=== PATIENT | female | born 1950 | race Two or more races ===

== ENCOUNTER 2019-03-17 12:45 | Inpatient (IN) | payer MEDICARE, MEDICAID ==
[~2019-03-17] VITALS: Ht 167.6 cm; Wt 74.8 kg
[~2019-03-17 12:45] MED LIST: ACET-1156 PO; ATO40T PO; B-COCAP4 OR; B-COTAB10 PO; BENA10TA9 PO; BIS10RS PR; CARV12.544 PO; CINA30TA2 PO; DOCU250C3 PO; EPOE10003 SC; ERGO2000 PO; FLUT1SPR5 IN; INSREG3 SUBCUT; LACT10SO3 PO; LORA-622 PO; LORA-655 PO; METH500T6 PO; MUPI2CRE TOP; NIFE60TA59 PO; POLY33504 PO; SEVE800T10 PO; SIME80CH6 PO; SODIENE35 RE; SODIPOW6 OR; TRAM50TA2 PO
[2019-03-17] MEDS ORDERED: HYDROmorphone HCL 2 MG/ML VL IV ONE (13:00)
[2019-03-17] MEDS ORDERED: ONDANSETRON HCL 4 MG/2 ML VIAL IV ONE ×2 (13:00→17:30)
[2019-03-17 13:51] LABS: Basophils # (auto) 0 uL; Basophils % (auto) 0.8 % (0.0-2.0); Eosinophils # (auto) 0.6 uL; Hemoglobin 8.7 g/dL (12.2-16.2); Lymphocytes # (auto) 0.8 uL; Lymphocytes % (auto) 16.1 % (10.0-50.0); Mean Corpuscular Hemoglobin 33.2 pg (28.0-32.0); Mean Corpuscular Hgb Conc. 33.6 g/dL (32.0-36.0); Monocytes # (auto) 0.4 uL; Monocytes % (auto) 7.9 % (0.0-12.0); Neutrophils # (auto) 3.1 uL; Neutrophils % (auto) 63.2 % (37.0-80.0); Nucleated Red Blood Cells % 0.1 %; Platelet Count (auto) 234 10^3/uL (140-450); Red Blood Cells 2.62 10^6/uL (4.0-5.20); White Blood Cell 4.9 10^3/uL (4.4-10.8)
[2019-03-17 14:13] LABS: BUN/Creatinine Ratio 6.4; Calcium 8.1 mg/dL (8.5-10.1); Potassium 4.8 mmol/L (3.5-5.1)
[2019-03-17 14:27] LABS: Red Cell Distribution Width 22.1 % (11.8-14.3)
[2019-03-17] MEDS ORDERED: MORPHINE SULFATE 4 MG/ML SYR/VIAL IV ONE (17:30)
[2019-03-17] MEDS ORDERED: MORPHINE SULF INJ 2 MG/ML SYRINGE 1ML IV PRN (19:15)
[2019-03-17] MEDS ORDERED: NITROGLYCERIN 0.4 MG SL TAB SL PRN (19:15)
--- NOTE | 2019-03-17 21:35 | NUR ---
Telemetry admit from [facility] admitted to Telemetry unit after SBAR received. Patient oriented to Joseline og RN, unit, room, bed, and unit policies regarding patient care and visiting hours. Patient now on continuous telemetry monitoring, tele box # 31 and telemetry reading on arrival to unit is SR 61. Patient placed on bedside oxygen, weighed by bed scale and encouraged to call if they need something. All questions and concerns addressed, patient verbalized understanding. Note: Came per stretcher awake alert oriented x 4,not in resp.distress, placed in the bed comfortably,vital signs checked.
[2019-03-17 22:27] VITALS: BP 166/74
--- NOTE | 2019-03-17 23:00 | NUR ---
Called Dr. Elizabeth Abbottfor benadryl 25mg.p.o for itching,and lorazepam 1 mg.p.o.for anxiety, with ordered both as needed.
[2019-03-17] MEDS: LORazepam 0.5 MG TAB PO PRN (23:38)
[2019-03-18] VITALS (8 sets, daily range): BP systolic 142–187; BP diastolic 51–94
[2019-03-18] MEDS: diphenhdrAMINE HCL 25 MG CAP PO PRN ×2 (03:38→21:10)
[2019-03-18] MEDS: MORPHINE SULF INJ 2 MG/ML SYRINGE 1ML IV PRN (03:39)
[2019-03-18] MEDS ORDERED: HYDROmorphone HCL 2 MG/ML VL IM ONE (04:30)
--- NOTE | 2019-03-18 06:00 | NUR ---
Dialysis nurse called and said she will come at 0800. Signed: 03/18/19 at 0654 by Joseline Golden RN
[2019-03-18 06:17] LABS: Basophils # (auto) 0.1 uL; Basophils % (auto) 1.3 % (0.0-2.0); Eosinophils # (auto) 0.7 uL; Eosinophils % (auto) 12.9 % (0.0-7.0); Hematocrit 25.6 % (36.0-46.0); Hemoglobin 8.5 g/dL (12.2-16.2); Lymphocytes # (auto) 0.7 uL; Lymphocytes % (auto) 13.6 % (10.0-50.0); Mean Corpuscular Hemoglobin 32.7 pg (28.0-32.0); Mean Corpuscular Hgb Conc. 33.3 g/dL (32.0-36.0); Mean Corpuscular Volume 98.3 fL (80.0-100.0); Monocytes # (auto) 0.4 uL; Monocytes % (auto) 7.8 % (0.0-12.0); Neutrophils # (auto) 3.4 uL; Neutrophils % (auto) 64.4 % (37.0-80.0); Nucleated Red Blood Cells % 0.2 %; Platelet Count (auto) 230 10^3/uL (140-450); White Blood Cell 5.2 10^3/uL (4.4-10.8)
[2019-03-18 06:18] LABS: Red Cell Distribution Width 20.9 % (11.8-14.3)
[2019-03-18 06:40] LABS: Calcium 8.1 mg/dL (8.5-10.1); Chloride 100 mmol/L (98-107); Potassium 4.8 mmol/L (3.5-5.1); Sodium 135 mmol/L (136-145)
[2019-03-18 06:45] LABS: Alanine Aminotransferase < 6 U/L (13-56); Albumin 2.1 g/dL (3.4-5.0); Alkaline Phosphatase 194 U/L (45-117); Anion Gap 9 (5-15); Aspartate Aminotransferase 20 U/L (15-37); BUN/Creatinine Ratio 6.9; Bilirubin, Total 0.8 mg/dL (0.2-1.0); Blood Urea Nitrogen 38 mg/dL (7-18); Carbon Dioxide 26 mmol/L (21-32); GFR African American 10 mL/min; GFR Non-African American 8 mL/min; Glucose 88 mg/dL (74-106); Total Protein 5.5 g/dL (6.4-8.2)
[2019-03-18] MEDS ORDERED: SODIUM CHL 0.9% 1000 ML BAG XX ONE (07:00)
--- NOTE | 2019-03-18 07:10 | NUR ---
OPENING SHIFT NOTE ASSUMED CARE OF PATIENT FROM MANUFACTURING LAB TECHNICIAN KYLEE MCGARRY. PATIENT IS AWAKE AND ALERT X4. PATIENT HAS NO S/S OF DISTRESS/SOB OR PAIN. INSTRUCTED PATIENT ON POC, PATIENT VERBALIZED UNDERSTANDING. BED IS IN LOWEST POSITION WITH SIDE RAILS X2, BED WHEELS LOCKED, AND CALL LIGHT IS WITHIN REACH. WILL CONTINUE TO MONITOR.
--- NOTE | 2019-03-18 07:47 | NUR ---
Report given to Douglas Tran to assume care, patient is resting no distress, picture taken of the back and of the left upper chest.
--- NOTE | 2019-03-18 08:00 | NUR ---
PER PATIENT SHE TAKES ATIVAN PRIOR TO DIALYSIS. WILL ADMINISTER ACCORDING MAR.
--- NOTE | 2019-03-18 08:30 | NUR ---
PHLEBOTOMIST ASSOCIATE AT BEDSIDE.
[2019-03-18] MEDS: LORazepam 0.5 MG TAB PO PRN ×3 (08:36→21:10)
--- NOTE | 2019-03-18 11:04 | NUR ---
PAGED MD NAYAK FOR PAIN MEDICATION AND ACCUCHECK. AWAITING CALL BACK.
--- NOTE | 2019-03-18 13:05 | NUR ---
DIALYSIS DONE. RECEIVED REPORT FROM DEPENDENCY PROGRAM DIRECTOR. PATIENT'S RIGHT ARM IS EDEMATOUS 4+. PAGED DR. TAM AND DR. NAYAK. AWAITING CALL BACK
--- NOTE | 2019-03-18 13:06 | NUR ---
MD NAYAK CALLED BACK AND WANTS TO CONTINUE HOME MEDICATION TRAMADOL AND ACCUCHECKS. NO NEW ORDERS GIVEN FOR RIGHT ARM.WILL CONTINUE TO MONITOR.
[2019-03-18] MEDS ORDERED: DEXTROSE (50%) 50ML SYRG IV PRN (13:15)
[2019-03-18] MEDS: traMADol HCL 50 MG TAB PO PRN (13:31)
--- NOTE | 2019-03-18 14:12 | NUR ---
WOUND CARE NOTE: Wound care in to see patient per wound care request regarding "scab in the left upper chest" that are noted present on admission. Bedside nurse took photograph of patient's wounds upon admission for reference. Patient is 68 years old female with admitting diagnosis of Pulmocare Edema, Fluid Overload. She has history of ESRD. Patient is resting in bed in Rm. 217A. She's awake, alert and oriented. Patient is in no stated pain at this time, however mild pain noted upon turning. She's able to move, turn and reposition self. Her Salty score is 18. Patient las long linear, stapled incision to her posterior back. Wound is clean and dry, well approximated with intact tabitha, no drainage/odor noted, bedside nurse cleansed and covered with Primapore dressing. Patient has history of back surgery three weeks ago at [facility]. She has 1.2x1cm open full thickness wound with no measurable depth to her Lt upper chest which she states "previous cath site that got infected, and removed" Wound is red with pink periwound, scant sanguinous drainage noted, no odor noted. Cleansed patient's Lt. upper chest wound with NS, patted dry with sterile gauze, applied Thera honey gel and covered with Opti foam gentle dressing. No pressure injury noted, however patient's sacrum has darker brown shades sacral skin but blanchable. Patient tolerated well and repositioned for comfort. Patient's education given regarding skin/wound care, encourage to frequently shifts weighs by turning side to side. Patient verbalized understanding. Bed in low position, call roach on hand, all safety precautions in placed. No further wound care monitoring needed at this time. RECOMMENDATION: BID/PRN cleaning and application of Barrier cream to sacrum as preventative,EOD/PRN dressing change to L upper chest wound, dressing change to back wound per MD order, dietary consult, redistribute pressure points with pillows, elevate heels on pillows. Addendum: 03/18/19 at 1824 by Alysha Esteves RN Amended: Links added.
[2019-03-18] MEDS: hydrALAZINE HCL 20 MG/ML VL IV PRN (15:55)
--- NOTE | 2019-03-18 16:30 | NUR ---
DR. NAYAK AT BEDSIDE. UPDATED MD ON PATIENT'S STATUS INCLUDING BLOOD PRESSURE, MD IS AWARE. MD ORDERED PT EVAL. WILL FOLLOW THROUGH WITH ORDER.
--- NOTE | 2019-03-18 16:31 | NUR ---
assessment Patient is a 68 year old female who is alert and oriented. Prior to admission patient lived home with her daughter Neo and functioned with her assistance. Patient has a fww for home use. [facility]. Patient informed me she wants to go to [facility] for PT and dialysis on discharge. Patients post discharge needs to be determined prior to discharge. Addendum: 03/18/19 at 1634 by Joaquina MATA Amended: Links added.
[2019-03-18] MEDS: ACCU-CHEK COMFORT CURVE STRIP VI SCH ×2 (17:00→22:00)
[2019-03-18] MEDS: InsuLIN REG 1unit/0.01ml Soln (100units/ml) SC SCH ×2 (17:00→22:00)
--- NOTE | 2019-03-18 19:23 | NUR ---
CLOSING SHIFT NOTE ENDORSED CARE TO HEATING FIXTURE TENDER RN FROY. PATIENT HAS NO S/S OF DISTRESS/SOB OR PAIN AT THIS TIME.
[2019-03-19] VITALS (9 sets, daily range): BP systolic 164–214; BP diastolic 64–91
[2019-03-19] MEDS: traMADol HCL 50 MG TAB PO PRN ×2 (01:39→13:40)
--- NOTE | 2019-03-19 05:48 | NUR ---
BLOOD SUGAR OF 73 WITH PATIENT PROMPTED TO DRINK APPLE JUICE MIXED WITH SUGAR. RECHECK THIRTY MINUTES LATER REVEALED A BLOOD SUGAR OF 97.
[2019-03-19] MEDS: LORazepam 0.5 MG TAB PO PRN ×2 (05:50→20:04)
[2019-03-19] MEDS: ACCU-CHEK COMFORT CURVE STRIP VI SCH ×4 (05:51→22:26)
[2019-03-19] MEDS: InsuLIN REG 1unit/0.01ml Soln (100units/ml) SC SCH ×4 (05:51→22:00)
--- NOTE | 2019-03-19 07:15 | NUR ---
OPENING SHIFT NOTE ASSUMED CARE OF PATIENT FROM RN RENAL RN FROY. PATIENT IS AWAKE AND ALERT X4. PATIENT HAS NO S/S OF DISTRESS/SOB. PATIENT STATES SHE IS HAVING PAIN 7/10 AND IS REQUESTING DILAUDID AND BENADRYL TO BE GIVEN TOGETHER. INFORMED PATIENT SHE ONLY HAS TRAMADOL ORDERED AND IT IS NOT DUE YET, PATIENT VERBALIZED UNDERSTANDING. ASSISTED PATIENT TO CHAIR WITH MINIMAL ASSISTANCE. INSTRUCTED PATIENT ON POC, PATIENT VERBALIZED UNDERSTANDING. PATIENT IS SITTING UP IN CHAIR EATING BREAKFAST, SITTER AT BEDSIDE AND CALL LIGHT IS WITHIN REACH. WILL CONTINUE TO MONITOR.
--- NOTE | 2019-03-19 08:16 | NUR ---
PAGED MD NAYAK REGARDING YESTERDAYS PROGRESS NOTE. CONFIRMING MD WANTS TO CONTINUE HOME MEDICATIONS AND CARDIO AND ORTHO CONSULT. NO NEW ORDERS WERE PUT IN COMPUTER. AWAITING CALL BACK.
--- NOTE | 2019-03-19 08:45 | NUR ---
PT AMBULATING PATIENT WITH WALKER. PATIENT HAS NO S/S OF DISTRESS/SOB. WILL CONTINUE TO MONITOR.
--- NOTE | 2019-03-19 09:00 | NUR ---
PATIENT'S BLOOD PRESSURE IS 214/71 mmHg. WILL ADMINISTER BLOOD PRESSURE MEDICATION PER NOV.
[2019-03-19] MEDS: hydrALAZINE HCL 20 MG/ML VL IV PRN ×3 (09:05→20:41)
--- NOTE | 2019-03-19 10:00 | NUR ---
REASSESSED BLOOD PRESSURE 164/73 mmHg. HEART RATE IS 75 BPM.
--- NOTE | 2019-03-19 12:34 | NUR ---
Nutrition consult/assessment Notes please see attached link for complete assessment Est. Needs BW [id number] kcal (27-30 kcal/kgBW), 85-99 gms pro (1.2-1.4 gms/kgBW r/t HD severe hypoalb wounds). Will continue to monitor pertinent labs and reassess nutrient need prn Addendum: 03/19/19 at [address] Amended: Links added.
--- NOTE | 2019-03-19 13:34 | NUR ---
PAGED MD NAYAK. AWAITING CALL BACK
--- NOTE | 2019-03-19 16:20 | NUR ---
PAGED MD NAYAK. AWAITING CALL BACK
--- NOTE | 2019-03-19 19:24 | NUR ---
Opening Shift Note Assumed care of patient, awake and alert x 4. No S/S of distress/SOB. Bed is in lowest position and locked. Call light within reach. Board updated. Tele box number matches monitor and leads are in correct placement. Instructed on POC and to call for assist PRN, will continue to monitor for changes Q1hr and PRN.
[2019-03-19] MEDS: diphenhdrAMINE HCL 25 MG CAP PO PRN (20:04)
--- NOTE | 2019-03-19 20:52 | NUR ---
Paged MD Johnson to notify him that patient's blood pressure has been elevated for the past 36 hours yet patient is not recieving their home blood pressure medications. Awaiting call back.
[2019-03-19] MEDS: Pro-Stat SF 30ml Vanilla PO SCH (22:00)
--- NOTE | 2019-03-19 22:18 | NUR ---
Dr. Johnson in to see patient. Orders received. Per MD Johnson: 1) CBC, BMP test for next three days, 2) Cardiology consult for MD Larkin, 3) Ortho consult for vertebral surgery at [facility], chronic back and hip pain 4) Resume daily home medications with exception of Sensipar because of current calcium levels, These medications are Atorvastatin 40 mg PO HS, Benazepril 10 mg PO Daily, Carvedilol 12.5 mg PO q 12 hrs, Nifedipine 60 mg PO Daily, and Docusate 250 mg PO BID. Addendum: 03/19/19 at 2303 by JERARDO SHAW RN Orders repeated, verified and placed.
[2019-03-19] MEDS: ASCORBIC ACID 500 MG TAB PO SCH (22:25)
[2019-03-19] MEDS: CARVEDILOL 12.5 MG TAB PO SCH (23:38)
[2019-03-19] MEDS: ATORVASTATIN 20 MG TAB PO SCH (23:39)
[2019-03-20] MEDS: traMADol HCL 50 MG TAB PO PRN ×2 (01:38→14:11)
[2019-03-20] MEDS: diphenhdrAMINE HCL 25 MG CAP PO PRN ×2 (02:01→17:02)
[2019-03-20 04:58] VITALS: BP 129/52
[2019-03-20] MEDS: LORazepam 0.5 MG TAB PO PRN ×2 (05:11→18:28)
[2019-03-20] MEDS: InsuLIN REG 1unit/0.01ml Soln (100units/ml) SC SCH ×4 (06:17→22:00)
[2019-03-20] MEDS: ACCU-CHEK COMFORT CURVE STRIP VI SCH ×4 (06:17→22:44)
--- NOTE | 2019-03-20 07:10 | NUR ---
OPENING SHIFT NOTE ASSUMED CARE OF PATIENT FROM GUIDE PLANT RN JERARDO. PATIENT HAS NO S/S OF DISTRESS/SOB OR PAIN. INSTRUCTED PATIENT ON POC, PATIENT VERBALIZED UNDERSTANDING. BED IS IN LOWEST POSITION WITH SIDE RAILS RAISED X2, BED WHEELS LOCKED, AND CALL LIGHT IS WITHIN REACH. WILL CONTINUE TO MONITOR.
[2019-03-20 08:00] VITALS: BP 133/47
--- NOTE | 2019-03-20 08:38 | NUR ---
PAGED MD TAM FOR DIALYSIS ORDERS. AWAITING CALL BACK
[2019-03-20 09:00] VITALS: BP 133/47
--- NOTE | 2019-03-20 09:50 | NUR ---
DAUGHTER AT BEDSIDE UPDATED DAUGHTER ON PATIENT'S STATUS, DAUGHTER IS AWARE. PER DAUGHTER PATIENT IS ADDICTED TO PAIN MEDICATIONS AND REFUSES TO GET OUT OF BED FOR DIALYSIS. PATIENT'S ROOM IS ON THE SECOND STORY. INFORMED DAUGHTER THAT PATIENT STATED, " IT IS HARD FOR ME TO WALK UP AND DOWN THE STAIRS AFTER I HAD BACK SURGERY AND MY GRANDSON HAS A BEDROOM ON THE FIRST FLOOR AND WONT SWITCH ME ROOMS." DAUGHTER STATED, "MY MOM WANTS TO SLEEP IN THE LIVING ROOM AND SHE CAN'T SLEEP THERE." DAUGHTER WANTS PATIENT TO BE SENT TO A REHAB FACILITY. DAUGHTER ALSO BROUGHT IN PATIENT'S HOME MEDICATION FOR PERCOCET, INFORMED DAUGHTER I WILL INFORM MD NAYAK OF PRESCRIPTION AND SHE WILL NEED TO TAKE THE BOTTLE OF MEDICATION HOME. DAUGHTER VERBALIZED UNDERSTANDING AND WILL TAKE IT HOME.
[2019-03-20] MEDS: Pro-Stat SF 30ml Vanilla PO SCH ×2 (10:00→21:26)
[2019-03-20] MEDS: NIFEdipine ER 30 MG TAB PO SCH (10:00)
[2019-03-20] MEDS: ASCORBIC ACID 500 MG TAB PO SCH ×2 (10:01→22:44)
[2019-03-20] MEDS: BENAZEPRIL HCL 10 MG TAB PO SCH (10:01)
[2019-03-20] MEDS: B-COMPLEX W/ C & FOLIC ACID(NEPHROVITE TAB) PO SCH (10:01)
[2019-03-20] MEDS: CARVEDILOL 12.5 MG TAB PO SCH ×2 (10:01→22:43)
--- NOTE | 2019-03-20 10:20 | NUR ---
PHYSICAL THERAPY AT BEDSIDE. PATIENT IS OUT OF BED AND IS AMBULATING WITH WALKER. PT PLACED BACK BRACE ON PATIENT. WILL CONTINUE TO MONITOR.
[2019-03-20] MEDS: DOCUSATE CALCIUM 240 MG CAP PO PRN (10:26)
--- NOTE | 2019-03-20 13:45 | NUR ---
INFORMED MD NAYAK PATIENT HAS PRESCRIPTION FOR PERCOCET. PER MD CONTINUE ORDER FOR MEDICATION. WILL FOLLOW THROUGH WITH ORDERS.
[2019-03-20 14:18] VITALS: BP 146/64
[2019-03-20 15:10] LABS: BUN/Creatinine Ratio 5.9; Calcium 7.9 mg/dL (8.5-10.1); Potassium 5.3 mmol/L (3.5-5.1)
[2019-03-20 15:17] LABS: Basophils # (auto) 0.1 uL; Basophils % (auto) 1.3 % (0.0-2.0); Eosinophils # (auto) 0.6 uL; Lymphocytes # (auto) 0.7 uL; Monocytes # (auto) 0.4 uL; Red Blood Cells 2.47 10^6/uL (4.0-5.20); White Blood Cell 4.9 10^3/uL (4.4-10.8)
[2019-03-20 15:20] LABS: Eosinophils % (auto) 12.5 % (0.0-7.0); Hematocrit 24.7 % (36.0-46.0); Hemoglobin 8.1 g/dL (12.2-16.2); Mean Corpuscular Hemoglobin 32.7 pg (28.0-32.0); Mean Corpuscular Hgb Conc. 32.7 g/dL (32.0-36.0); Mean Corpuscular Volume 100.1 fL (80.0-100.0); Monocytes % (auto) 7.9 % (0.0-12.0); Neutrophils # (auto) 3.1 uL; Neutrophils % (auto) 64.3 % (37.0-80.0); Platelet Count (auto) 214 10^3/uL (140-450)
--- NOTE | 2019-03-20 15:30 | NUR ---
SPOKE WITH MD NAYAK. INFORMED MD PATIENT'S POTASSIUM IS 5.3. INFORMED HIM NEPHRO IS ON CASE. STATED, "GREAT." NO NEW ORDERS GIVEN.
[2019-03-20 16:54] VITALS: BP 118/46
--- NOTE | 2019-03-20 18:00 | NUR ---
PAGED DR. TAM REGARDING PATIENT'S POTASSIUM LEVEL OF 5.3 AND DIALYSIS ORDERS. AWAITING CALL BACK
--- NOTE | 2019-03-20 18:15 | NUR ---
SPOKE WITH GLOBAL SAFETY OFFICER FARZANA. PER RN, SHE WILL CALL DR. RAINEY FOR DIALYSIS ORDERS FOR TOMORROW
[2019-03-20] MEDS: OXYCODONE W/ ACETAMINOPHEN 5/325MG TABLET PO PRN (20:13)
--- NOTE | 2019-03-20 20:47 | NUR ---
Paged MD Johnson to notify him that the Ortho consult could not be called in because physician will only accept consults from Physicians only. I notified him that the consult will have to be called in either by himself or through his office. Awaiting response.
--- NOTE | 2019-03-20 20:53 | NUR ---
MD Gilbert called back and ordered the ortho consult to be cancelled. Order repeated, verified, and placed.
--- NOTE | 2019-03-20 21:05 | NUR ---
Wound care performed. Removed soiled dressing over wound to left upper chest. Cleansed wound with wound cleanser and patted dry with sterile gauze. Covered wound with Therahoney and placed new Optifoam over wound. Time, date, and initials written on Optifoam. Patient tolerated well.
[2019-03-20 22:00] VITALS: BP 123/56
[2019-03-20] MEDS: ATORVASTATIN 20 MG TAB PO SCH (22:43)
[2019-03-21] VITALS (8 sets, daily range): BP systolic 121–189; BP diastolic 60–79
--- NOTE | 2019-03-21 02:38 | NUR ---
Patient reported feeling sweaty and weak. Blood glucose on assessment was 61. Patient given elizabeth crackers and juice. Will reassess soon.
--- NOTE | 2019-03-21 03:12 | NUR ---
Blood glucose rechecked: 94 mg/dl. Will continue to monitor.
[2019-03-21] MEDS: OXYCODONE W/ ACETAMINOPHEN 5/325MG TABLET PO PRN (05:59)
[2019-03-21] MEDS: ACCU-CHEK COMFORT CURVE STRIP VI SCH ×4 (05:59→21:32)
[2019-03-21] MEDS: diphenhdrAMINE HCL 25 MG CAP PO PRN ×2 (05:59→18:21)
[2019-03-21] MEDS: InsuLIN REG 1unit/0.01ml Soln (100units/ml) SC SCH ×4 (06:09→21:32)
[2019-03-21 07:15] LABS: Eosinophils # (auto) 0.6 uL; Mean Corpuscular Hgb Conc. 32.6 g/dL (32.0-36.0); Neutrophils # (auto) 2.7 uL; Platelet Count (auto) 214 10^3/uL (140-450); Red Blood Cells 2.32 10^6/uL (4.0-5.20)
[2019-03-21 07:21] LABS: Basophils # (auto) 0.1 uL; Basophils % (auto) 1.3 % (0.0-2.0); Eosinophils % (auto) 13.2 % (0.0-7.0); Hematocrit 23.2 % (36.0-46.0); Hemoglobin 7.6 g/dL (12.2-16.2); Lymphocytes # (auto) 0.8 uL; Lymphocytes % (auto) 17.2 % (10.0-50.0); Mean Corpuscular Hemoglobin 32.6 pg (28.0-32.0); Mean Corpuscular Volume 99.9 fL (80.0-100.0); Monocytes # (auto) 0.3 uL; Monocytes % (auto) 7.5 % (0.0-12.0); Neutrophils % (auto) 60.8 % (37.0-80.0); Red Cell Distribution Width 19.6 % (11.8-14.3); White Blood Cell 4.4 10^3/uL (4.4-10.8)
[2019-03-21 07:29] LABS: Calcium 7.9 mg/dL (8.5-10.1); Potassium 5.3 mmol/L (3.5-5.1)
--- NOTE | 2019-03-21 08:00 | NUR ---
RECEIVED PT RESTING IN BED, CALL LIGHT WITHIN REACH, PT REQUESTED ANXIETY MEDICATION, WILL MEDICATE PT ORDER, DRESSING ON LT UPPER CHEST IS CLEAN AND INTACT, MID BACK DRESSING CLEAN AND DRY, PT EDUCATED TO USE CALL LIGHT FOR ASSISTANCE NEEDED. WILL CONTINUE TO MONITOR PT.
[2019-03-21] MEDS: CARVEDILOL 12.5 MG TAB PO SCH ×2 (08:43→21:33)
[2019-03-21] MEDS: BENAZEPRIL HCL 10 MG TAB PO SCH (08:44)
[2019-03-21] MEDS: NIFEdipine ER 30 MG TAB PO SCH (08:45)
[2019-03-21] MEDS: B-COMPLEX W/ C & FOLIC ACID(NEPHROVITE TAB) PO SCH (08:53)
[2019-03-21] MEDS: ASCORBIC ACID 500 MG TAB PO SCH ×2 (08:53→21:32)
[2019-03-21] MEDS: LORazepam 0.5 MG TAB PO PRN ×2 (08:54→21:31)
[2019-03-21] MEDS: Pro-Stat SF 30ml Vanilla PO SCH ×2 (08:54→21:36)
--- NOTE | 2019-03-21 09:00 | NUR ---
PT AMBULATED WITH PHYSICAL THERAPY AND A WALKER, PT SAT ON CHAIR, CALL LIGHT WITHIN REACH.
[2019-03-21] MEDS: MORPHINE SULF INJ 2 MG/ML SYRINGE 1ML IV PRN ×2 (10:52→17:26)
--- NOTE | 2019-03-21 13:05 | NUR ---
HEMODIALYSIS NURSE AT BED SIDE FOR HEMODIALYSIS.
[2019-03-21] MEDS ORDERED: SODIUM CHL 0.9% 1000 ML BAG XX ONE (13:45)
--- NOTE | 2019-03-21 16:52 | NUR ---
DR. NAYAK AT BED SIDE TO SEE PT. DOCTOR DISCUSSED PLAN OF CARE WITH PT.
--- NOTE | 2019-03-21 16:53 | NUR ---
RECEIVED REPORT FROM HEMODIALYSIS NURSE, HD FINISHED, REMOVED 3 LIT, BP 189/63, HR 71, PRESSURE DRESSING ON, PER HD NURSE DR. RAINEY / NEPHRO RECOMMENDED FOR PT TO ELEVATE RT UPPER ARM TO DECREASE SWELLING, MARY ELEVATED WITH PILLOWS.
[2019-03-21] MEDS: DOCUSATE CALCIUM 240 MG CAP PO PRN (17:09)
[2019-03-21] MEDS: hydrALAZINE HCL 20 MG/ML VL IV PRN (17:10)
--- NOTE | 2019-03-21 18:14 | NUR ---
DR. CLARK / PAIN MANAGEMENT AT BED SIDE TO SEE PT, DOCTOR DISCUSSED PLAN OF CARE WITH PT.
[2019-03-21] MEDS ORDERED: HYDROmorphone HCL 2 MG TAB PO PRN (18:15)
--- NOTE | 2019-03-21 19:20 | NUR ---
Opening Shift Note Received report from Adri PICHARDO. Assumed care of patient, awake and alert. No S/S of distress/SOB or pain. Instructed on POC and to call for assist PRN. Bed in lowest position, side rails up x2, bed alarm on, call light and belongings within reach. Will continue to monitor for changes Q1hr and PRN.
--- NOTE | 2019-03-21 20:29 | NUR ---
Patient's daughter Taylor called and wishes her mother to go back to [facility] upon discharge. Per Taylor, her mother does not met criteria for admission to [facility]. Will endorse to bruna PICHARDO.
[2019-03-21] MEDS ORDERED: EPOETIN ALFA 10,000 UNIT/1 ML VIAL SC ONE (21:00)
[2019-03-21] MEDS: ATORVASTATIN 20 MG TAB PO SCH (21:31)
[2019-03-21] MEDS: ZOLPIDEM TARTRATE 5 MG TAB PO PRN (23:33)
[2019-03-22] MEDS: hydrALAZINE HCL 20 MG/ML VL IV PRN (05:12)
[2019-03-22] MEDS: diphenhdrAMINE HCL 25 MG CAP PO PRN ×3 (05:12→20:50)
[2019-03-22] MEDS: LORazepam 0.5 MG TAB PO PRN ×3 (05:14→20:49)
[2019-03-22 05:28] VITALS: BP 165/63
[2019-03-22 06:35] LABS: Basophils # (auto) 0.1 uL; Eosinophils # (auto) 0.5 uL; Lymphocytes # (auto) 0.6 uL; Mean Corpuscular Volume 100.1 fL (80.0-100.0); Monocytes # (auto) 0.4 uL; Nucleated Red Blood Cells % 0.1 %; Platelet Count (auto) 187 10^3/uL (140-450)
[2019-03-22 06:40] LABS: Basophils % (auto) 1.4 % (0.0-2.0); Eosinophils % (auto) 11.3 % (0.0-7.0); Hematocrit 24.3 % (36.0-46.0); Lymphocytes % (auto) 13.4 % (10.0-50.0); Mean Corpuscular Hemoglobin 33.1 pg (28.0-32.0); Mean Corpuscular Hgb Conc. 33.1 g/dL (32.0-36.0); Monocytes % (auto) 8.3 % (0.0-12.0); Neutrophils # (auto) 3.1 uL; Neutrophils % (auto) 65.6 % (37.0-80.0); Red Blood Cells 2.43 10^6/uL (4.0-5.20); White Blood Cell 4.7 10^3/uL (4.4-10.8)
[2019-03-22 06:45] LABS: Calcium 7.9 mg/dL (8.5-10.1)
[2019-03-22 06:48] LABS: BUN/Creatinine Ratio 6.2
[2019-03-22] MEDS: ACCU-CHEK COMFORT CURVE STRIP VI SCH ×4 (06:58→21:55)
[2019-03-22] MEDS: InsuLIN REG 1unit/0.01ml Soln (100units/ml) SC SCH ×4 (06:58→21:54)
[2019-03-22 08:42] VITALS: BP 134/58
[2019-03-22] MEDS: CARVEDILOL 12.5 MG TAB PO SCH ×2 (10:16→21:58)
[2019-03-22] MEDS: B-COMPLEX W/ C & FOLIC ACID(NEPHROVITE TAB) PO SCH (10:17)
[2019-03-22] MEDS: ASCORBIC ACID 500 MG TAB PO SCH ×2 (10:17→21:59)
[2019-03-22] MEDS: NIFEdipine ER 30 MG TAB PO SCH (10:17)
[2019-03-22] MEDS: Pro-Stat SF 30ml Vanilla PO SCH ×2 (10:17→21:59)
[2019-03-22] MEDS: OXYCODONE W/ ACETAMINOPHEN 5/325MG TABLET PO PRN ×2 (10:18→18:47)
[2019-03-22] MEDS: BENAZEPRIL HCL 10 MG TAB PO SCH (10:18)
[2019-03-22 13:00] VITALS: BP 138/66
--- NOTE | 2019-03-22 14:15 | NUR ---
Called and spoke to Dr. Johnson to informed that pt's last BM was 03/17, and that pt is requesting a laxative, orders obtained.
[2019-03-22] MEDS: DOCUSATE CALCIUM 240 MG CAP PO PRN (14:31)
[2019-03-22] MEDS ORDERED: LACTULOSE 20Gm/30ML SOLN PO ONE (15:30)
[2019-03-22] MEDS ORDERED: LACTULOSE 20Gm/30ML SOLN PO PRN (15:30)
[2019-03-22 16:42] VITALS: BP 144/65
--- NOTE | 2019-03-22 17:45 | NUR ---
Dr. Johnson informed that as per sr. social media & mobile manager pt will not be able to be transfer to a SNF due to the order for chair time was placed late, sr. social media & mobile manager needs to fax all the information to the SNF facility to obtain a bed, and that pt will be transfer tomorrow.
--- NOTE | 2019-03-22 19:25 | NUR ---
Opening shift note: Assumed care from day nurse. Patient is in bed resting with eyes closed. Breathing is even and unlabored with no s/s of distress or sob. Bed in lowest position, side rail x 2, and call light is within reach.
[2019-03-22] MEDS: ATORVASTATIN 20 MG TAB PO SCH (21:58)
[2019-03-22 22:00] VITALS: BP 112/60
[2019-03-23] MEDS: hydrALAZINE HCL 20 MG/ML VL IV PRN ×2 (04:36→17:44)
[2019-03-23] MEDS: LORazepam 0.5 MG TAB PO PRN ×3 (04:36→17:56)
[2019-03-23] MEDS: diphenhdrAMINE HCL 25 MG CAP PO PRN (04:37)
--- NOTE | 2019-03-23 05:45 | NUR ---
Low blood sugar Patient had a blood sugar of 61. Immediately rechecked it was 64. Gave patient two cartoons of juice will recheck. No s/s of distress or sob.
[2019-03-23 05:52] VITALS: BP 167/59
[2019-03-23] MEDS: InsuLIN REG 1unit/0.01ml Soln (100units/ml) SC SCH ×4 (06:02→21:43)
[2019-03-23] MEDS: ACCU-CHEK COMFORT CURVE STRIP VI SCH ×4 (06:03→21:43)
--- NOTE | 2019-03-23 06:17 | NUR ---
Rechecked blood sugar Rechecked blood sugar it is 81. No s/s of distress or sob.
[2019-03-23 08:00] VITALS: BP 152/64
--- NOTE | 2019-03-23 08:00 | NUR ---
Opening Shift Note Assumed care of patient, awake and alert. No S/S of distress/SOB or pain. Instructed on POC and to call for assist PRN with call light within reach. Bed in low and locked position. livestock dealer at bedside for hemodialysis treatment. Will continue to monitor for changes Q1hr and PRN.
[2019-03-23 09:00] VITALS: BP 152/64
--- NOTE | 2019-03-23 09:26 | NUR ---
Received a call from Dr. Henderson / carrillo to order an urgent radiology consult for insertion of a tunnel catheter, doctor stated that pt's fistula is not working and HD was not done today.
[2019-03-23] MEDS: BENAZEPRIL HCL 10 MG TAB PO SCH (10:00)
[2019-03-23] MEDS: CARVEDILOL 12.5 MG TAB PO SCH ×2 (10:00→21:39)
[2019-03-23] MEDS: NIFEdipine ER 30 MG TAB PO SCH ×2 (10:00→16:36)
--- NOTE | 2019-03-23 10:00 | NUR ---
Notified floors buffer, Karla, of Dr Henderson requesting for a tunnel catheter placement for today. floors buffer will follow up with radiology.
[2019-03-23] MEDS: B-COMPLEX W/ C & FOLIC ACID(NEPHROVITE TAB) PO SCH (10:19)
[2019-03-23] MEDS: ASCORBIC ACID 500 MG TAB PO SCH ×2 (10:19→21:39)
[2019-03-23] MEDS: Pro-Stat SF 30ml Vanilla PO SCH ×2 (10:20→21:39)
--- NOTE | 2019-03-23 10:25 | NUR ---
Paged Dr Henderson to inform her that per pecan gathererKarla spoke to radiology. The tunnel catheter placement would not be able to be done today but would be scheduled for Sunday 03/25 at 0900. Awaiting return call.
[2019-03-23 10:39] LABS: INR 1.07 (0.9-1.15)
[2019-03-23 10:57] LABS: Alanine Aminotransferase < 6 U/L (13-56); Aspartate Aminotransferase 18 U/L (15-37)
[2019-03-23 11:04] LABS: Alkaline Phosphatase 167 U/L (45-117); Bilirubin, Direct 0.2 mg/dL (0-0.2); Bilirubin, Total 0.6 mg/dL (0.2-1.0); Total Protein 5.1 g/dL (6.4-8.2)
--- NOTE | 2019-03-23 11:30 | NUR ---
Dr Henderson returned phone call. informed re: tunnel catheter not being able to be placed today but is scheduled Sunday 03/[address] Henderson requesting a hi catheter placement and to inform cooker pie filling of new order.
[2019-03-23] MEDS: OXYCODONE W/ ACETAMINOPHEN 5/325MG TABLET PO PRN ×3 (12:02→20:43)
--- NOTE | 2019-03-23 12:30 | NUR ---
Received phone call from laser systems engineer, Karla, no available ER Dr available to place Sushil catheter and to consult with Dr Mahmood for placement. Dr Mahmood informed of Sushil catheter placement request, as per Dr Mahmood, he will discuss the case with Dr Henderson/ nephro.
[2019-03-23 13:00] VITALS: BP 172/60
--- NOTE | 2019-03-23 13:55 | NUR ---
Dr. Henderson / nephro at unit to see pt, as per Dr. Henderson, she talked to Dr. Mahmood for the hi cath placement, Dr. Henderson assessed pt, and Dr. Henderson stated pt can wait until tomorrow for Hi cath placement or Thursday for Tunnel cath placement.
[2019-03-23 14:11] LABS: BUN/Creatinine Ratio 6.6
--- NOTE | 2019-03-23 15:07 | NUR ---
Left a message with Dr. Henderson's practice office associate that pt's potassium level is 5.0.
--- NOTE | 2019-03-23 15:07 | NUR ---
Called/paged Dr. Henderson called regarding pt's potassium level as per her request. Waiting for call back. Continue care.
[2019-03-23 17:00] VITALS: BP 195/70
[2019-03-23] MEDS: ONDANSETRON HCL 4 MG/2 ML VIAL IV PRN (18:52)
--- NOTE | 2019-03-23 19:40 | NUR ---
Opening Shift Note Assumed care of patient, awake and alert. No S/S of distress/SOB or pain. Bed locked in lowest position, side rails upx2, call light within reach. Instructed on POC and to call for assist PRN, will continue to monitor for changes Q1hr and PRN.
--- NOTE | 2019-03-23 20:25 | NUR ---
DR. NAYAK AT BEDSIDE DISCUSSING POC WITH PATIENT.
[2019-03-23] MEDS: ATORVASTATIN 20 MG TAB PO SCH (21:38)
[2019-03-23] MEDS: ZOLPIDEM TARTRATE 5 MG TAB PO PRN (21:40)
[2019-03-23 22:30] VITALS: BP 147/71
[2019-03-24] MEDS: diphenhdrAMINE HCL 25 MG CAP PO PRN ×2 (01:39→23:00)
--- NOTE | 2019-03-24 01:47 | NUR ---
Patient complained of itching/dryness around nose, requested for benadryl PO. Patient also asked for blood sugar to be taken result was 63. Given patient apple juice and elizabeth crackers. Will continue to monitor.
[2019-03-24 05:46] VITALS: BP 123/86
[2019-03-24] MEDS: DOCUSATE CALCIUM 240 MG CAP PO PRN (06:30)
[2019-03-24] MEDS: ACCU-CHEK COMFORT CURVE STRIP VI SCH ×4 (06:31→21:27)
[2019-03-24] MEDS: InsuLIN REG 1unit/0.01ml Soln (100units/ml) SC SCH ×4 (06:31→21:27)
[2019-03-24 09:00] VITALS: BP 172/60
[2019-03-24] MEDS: B-COMPLEX W/ C & FOLIC ACID(NEPHROVITE TAB) PO SCH (09:52)
[2019-03-24] MEDS: NIFEdipine ER 30 MG TAB PO SCH (09:52)
[2019-03-24] MEDS: ASCORBIC ACID 500 MG TAB PO SCH ×2 (09:52→21:24)
[2019-03-24] MEDS: CARVEDILOL 12.5 MG TAB PO SCH ×2 (09:53→21:24)
[2019-03-24] MEDS: Pro-Stat SF 30ml Vanilla PO SCH ×2 (09:53→21:24)
[2019-03-24] MEDS: LORazepam 0.5 MG TAB PO PRN ×2 (10:31→20:00)
--- NOTE | 2019-03-24 12:11 | NUR ---
Nutrition consult/Follow-up Notes Wt.: 74.8 kg Pt was sleeping with no family by beside. per records pt to [facility] HD today. per records pt s/p [place] improving. pt with no distress noted per nursing. pt is currently on CCHO 60 gm renal std diet with inadequate PO of 50% x 4 per RN doc. pt also on prostat 1 packet bid Est. Needs BW [id number] kcal (27-30 kcal/kgBW), 85-99 gms pro (1.2-1.4 gms/kgBW r/t HD severe hypoalb wounds). Will continue to monitor pertinent labs and reassess nutrient need prn Labs: BUN 37 H, CREAT 5.62 H, CA 8.0 L, ALB 2.0 L. Skin: Salty scale 19, low risk,incision on chest and back per surgeon's assistant. noted pt on nephrovite and ascorbic acid GI: Pt had 9 BM 7/3 per surgeon's assistant. PES: Altered nutrition related lab values r/t acute/chronic medical condition aeb elev RFT severe hypoalb, hypocalcemia Will continue to monitor PO intake, skin status, pertinent labs and weight trend. F/u in 3-5 days. Rec.: 1.) consider nephro carbsteady 1 carton bid if PO continues to be low. 2) refer to CDE on DC. 3) continue assistance with meals. 4) current plan of care
[2019-03-24 12:37] LABS: Hepatitis A Ab IgM Negative; Hepatitis B Surface Antigen Negative (Negative)
[2019-03-24 12:38] LABS: Hepatitis B Core IgM Negative; Hepatitis C Antibody Negative (Negative)
[2019-03-24 13:00] VITALS: BP 150/58
[2019-03-24] MEDS: OXYCODONE W/ ACETAMINOPHEN 5/325MG TABLET PO PRN (14:09)
[2019-03-24] MEDS: ONDANSETRON HCL 4 MG/2 ML VIAL IV PRN (15:38)
[2019-03-24 17:00] VITALS: BP 134/53
[2019-03-24] MEDS: ATORVASTATIN 20 MG TAB PO SCH (21:23)
[2019-03-24] MEDS: ZOLPIDEM TARTRATE 5 MG TAB PO PRN (21:24)
[2019-03-24 22:17] VITALS: BP 124/60
[2019-03-25] MEDS: LORazepam 0.5 MG TAB PO PRN ×2 (02:59→13:47)
[2019-03-25 05:29] VITALS: BP 162/55
[2019-03-25] MEDS: InsuLIN REG 1unit/0.01ml Soln (100units/ml) SC SCH ×3 (06:26→17:00)
[2019-03-25] MEDS: ACCU-CHEK COMFORT CURVE STRIP VI SCH ×3 (06:26→17:00)
--- NOTE | 2019-03-25 06:33 | NUR ---
Patient's blood sugar was 51. Given 2 apple juices and rechecked blood sugar it went up to 63. Given 1 more apple juice and will continue to monitor.
[2019-03-25] MEDS ORDERED: SODIUM CHL 0.9% 1000 ML BAG XX ONE ×2 (07:00→12:05)
--- NOTE | 2019-03-25 07:51 | NUR ---
patient off unit per the tunnled catheter insertion for dialysis today
[2019-03-25] MEDS ORDERED: LIDOCAINE 2%HCL (LOCAL ANESTH.) INJ 20ML MDV ONE ×2 (07:55→09:47)
[2019-03-25] MEDS ORDERED: MIDAZOLAM HCL 1MG/1ML-2 ML VIAL ONE (08:28)
[2019-03-25] MEDS ORDERED: fentaNYL CITRATE 100 MCG/2 ML VL ONE (08:28)
[2019-03-25] MEDS ORDERED: HEPARIN SODIUM (PORCINE) 5000 UNITS/ML 1ML VIAL ONE (09:12)
[2019-03-25] MEDS ORDERED: ceFAZolin 1GM/50ML 50 ML IV ONE (09:51)
[2019-03-25] MEDS: CARVEDILOL 12.5 MG TAB PO SCH (10:00)
[2019-03-25] MEDS: NIFEdipine ER 30 MG TAB PO SCH (10:00)
[2019-03-25] MEDS ORDERED: LEVOFLOXACIN 500MG 100 ML IV ONE (10:00)
[2019-03-25] MEDS: Pro-Stat SF 30ml Vanilla PO SCH (10:00)
[2019-03-25] MEDS: OXYCODONE W/ ACETAMINOPHEN 5/325MG TABLET PO PRN ×2 (10:41→17:30)
--- NOTE | 2019-03-25 10:54 | NUR ---
Chart Snatcher called given report, the new tunneled catheter is places to the L upper chest, per Lorraine, (union laborer nurse) patient received pain medication for back pain 02/28 bp 161/51 99% RA bradycardia in the high 50s will await patient, and continue to monitor. Will call [facility] dialysis nurse, to make him aware the patient has completed procedure
--- NOTE | 2019-03-25 10:58 | NUR ---
paging md ramos per old order for transfer to snf , patient now has a tunneled cath and is able to get HD today, as ordered.
--- NOTE | 2019-03-25 11:00 | NUR ---
dialysis nurse beginning dialysis aiming for 3.5 L off, as ordered by kusum (nephrology) will keep monitoring this patient
--- NOTE | 2019-03-25 11:16 | NUR ---
FAMILY CALL SPOKE WITH DAUGHTER JERAMY, SHE IS UPDATED ON PLAN OF CARE. HOWEVER UNSURE REGARDING HER TRANSFER ORDER, UPDATED HER THAT I LEFT A MESSAGE FOR MD NAYAK TO GET AN UPDATE ON HER POC. FOR NOW PATIENT WILL BEGIN DIALYSIS SOON, [facility]TE DIALYSIS NURSE IS AT BEDSIDE
--- NOTE | 2019-03-25 11:30 | NUR ---
blood glucose patient's POC was 66, asymptomatic. Gave patient orange juice and will keep monitoring. No insulin given.
--- NOTE | 2019-03-25 11:53 | NUR ---
pharmacy talking with ysabel about the heparin for dialysis patient, talking to pharmacist to reschedule the heparin dosage so that I am able to pull from the medication verónica
[2019-03-25 12:00] VITALS: BP 176/79
--- NOTE | 2019-03-25 12:09 | NUR ---
md ramos per doctor ramos he would like the patient transferred today to snf, changed dates on old orders as ordered. will await for updates
[2019-03-25] MEDS: B-COMPLEX W/ C & FOLIC ACID(NEPHROVITE TAB) PO SCH (13:46)
[2019-03-25] MEDS: ASCORBIC ACID 500 MG TAB PO SCH (13:47)
--- NOTE | 2019-03-25 15:30 | NUR ---
speaking with case management per Dede/Altagracia patient will be going to [facility] Room [address] NAYAK [phone] Chair Time Thursday//thursday next dialysis is March 29 at 2:15 pm. Have the patient arrive 45 min prior [facility] will pick patient up from hospital for transport today at 5:30P
--- NOTE | 2019-03-25 15:41 | NUR ---
calling [facility] for report speaking with mariano
--- NOTE | 2019-03-25 16:05 | NUR ---
Per consult for SNF placement and chair time for dialysis. Contacted [facility] Ph: ) Fax: ) faxed medical records. Per Cecil from [facility] Pt has been accepted to room [address] MD [address] Johnson. Per Cecil from [facility] [employer] transportation will corn picker Pt at 17:30. Contacted [facility] Ph: ) Fax: ) faxed medical record. Per Carlyn from [facility] chair time will be Tuesdays , , and Thursday at 14:15. Per Carlyn from [facility] first day will be Thursday03/29/19 Pt to arrived 45 min prior to appointment for paper work. Informed RN Romina. Addendum: 03/25/19 at 1615 by JEANCARLOS HOLLOWAY Amended: Links added.
[2019-03-25] MEDS ORDERED: DOCUSATE CALCIUM 240 MG CAP PO PRN (16:15)
--- NOTE | 2019-03-25 16:28 | NUR ---
picked edge sewing machine operator time 530 PM
[2019-03-25 17:00] VITALS: BP 151/79
--- NOTE | 2019-03-25 18:04 | NUR ---
Discharge Transfers Patient is being transferred to [facility]. Patient is to follow up with accepting doctor NAEL at the receiving facility. Report given to KYLEE Garzon. No distress noted at this time. Remove EJ IV tolerate well, dressed with pressure dressing and 2x2's Chair time, arranged, March 29 at 2:15 P notified nurse to tell the patient to arrive to appointment 45 minute prior.
[2019-03-25] MEDS ORDERED: EPOETIN ALFA 10,000 UNIT/1 ML VIAL SC ONE (21:00)
== END 2019-03-25 19:36 | DRG 640 ==
LOC: EDBD 12:45 → ER 12:56 → TELE 12:57 → TELE-CENTR 21:35
PROVIDERS: ADMIT Internal Medicine; ATTEND Internal Medicine
PROC: 5A1D70Z Performance of Urinary Filtration, Intermittent, Less than 6 Hours Per Day (ICD-10-PCS; 2019-03-18)
PROC: 5A1D70Z Performance of Urinary Filtration, Intermittent, Less than 6 Hours Per Day (ICD-10-PCS; 2019-03-21)
PROC: 5A1D70Z Performance of Urinary Filtration, Intermittent, Less than 6 Hours Per Day (ICD-10-PCS; 2019-03-23)
PROC: B2141ZZ Fluoroscopy of Right Heart using Low Osmolar Contrast (ICD-10-PCS; principal; 2019-03-25)
PROC: 0JH63XZ Insertion of Tunneled Vascular Access Device into Chest Subcutaneous Tissue and Fascia, Percutaneous Approach (ICD-10-PCS; 2019-03-25)
PROC: 02H633Z Insertion of Infusion Device into Right Atrium, Percutaneous Approach (ICD-10-PCS; 2019-03-25)
PROC: B244ZZZ Ultrasonography of Right Heart (ICD-10-PCS; 2019-03-25)
PROC: 5A1D70Z Performance of Urinary Filtration, Intermittent, Less than 6 Hours Per Day (ICD-10-PCS; 2019-03-25)
DX: E87.70 Fluid overload, unspecified (principal); N18.6 End stage renal disease; E43 Unspecified severe protein-calorie malnutrition; I13.2 Hypertensive heart and chronic kidney disease with heart failure and with stage 5 chronic kidney disease, or end stage renal disease; T82.898A Other specified complication of vascular prosthetic devices, implants and grafts, initial encounter; I25.10 Atherosclerotic heart disease of native coronary artery without angina pectoris; I25.2 Old myocardial infarction; M47.817 Spondylosis without myelopathy or radiculopathy, lumbosacral region; I50.9 Heart failure, unspecified; E11.22 Type 2 diabetes mellitus with diabetic chronic kidney disease; G89.29 Other chronic pain; D64.9 Anemia, unspecified; Z80.3 Family history of malignant neoplasm of breast; Z82.49 Family history of ischemic heart disease and other diseases of the circulatory system; Z83.3 Family history of diabetes mellitus; Z86.73 Personal history of transient ischemic attack (TIA), and cerebral infarction without residual deficits; Z90.5 Acquired absence of kidney; Z99.2 Dependence on renal dialysis; Z88.8 Allergy status to other drugs, medicaments and biological substances; Z88.2 Allergy status to sulfonamides; Z91.040 Latex allergy status; Z91.018 Allergy to other foods; Z88.0 Allergy status to penicillin; Z90.49 Acquired absence of other specified parts of digestive tract; Y83.2 Surgical operation with anastomosis, bypass or graft as the cause of abnormal reaction of the patient, or of later complication, without mention of misadventure at the time of the procedure; Y92.238 Other place in hospital as the place of occurrence of the external cause; Z79.84 Long term (current) use of oral hypoglycemic drugs; Z68.26 Body mass index [BMI] 26.0-26.9, adult
CPT/HCPCS: 36415; 36561; 76942; 77001; 80048; 80053; 80074; 80076; 82962; 85025; 85610; 85730; 87081; 87205; 90935; 96374; 96375; 96376; 97110; 97116; 97530; 99152; G0378; J0690; J0885; J1642; J1956; J2250; J2405